=== PATIENT | female | born 1980 | race Caucasian/White ===

== ENCOUNTER 2018-02-08 10:13 | Outpatient (CLI) | payer OTHER ==
--- NOTE | 2018-02-08 12:20 | RAD ---
HYSTEROSALPINGOGRAM: HISTORY: Reversal of prior sterilization. FINDINGS: Informed consent was obtained from the patient. A speculum was introduced into the vaginal canal. T he cervix was localized. The cervical os was cleansed using a Betadine solution. HSG catheter was p laced into the distal uterine aspect. The HSG catheter was deployed. Approximately 8 cc of sterile iodinated contrast was introduced. The uterine canal is patent. There is initial prompt visualizat ion of the left fallopian tube which did not have free spill and appeared to end in a slightly dilate d left distal fallopian tube without spillage. The right fallopian tube subsequently filled. After a few seconds of injecting, there was free spill on the right side. IMPRESSION: Visualization of both fallopian tubes with free spill noted on the right. POS: LA[facility]
== END 2018-02-08 10:14 | disposition home or self-care (01) ==
LOC: RAD 10:13
PROVIDERS: ATTEND Obstetrics & Gynecology
DX: Z31.0 Encounter for reversal of previous sterilization (principal)
CPT/HCPCS: 58340; 74740